=== PATIENT | female | born 1975 | race Caucasian/White ===

== ENCOUNTER → 2019-12-20 13:33 | Outpatient (CLI) | payer OTHER, SELFPAY ==
[2019-12-20 14:25] LABS: Add Manual Diff / Slide Review NO; Basophils Absolute Auto 100 /uL (0-100); Basophils Percent Auto 0.7 % (0-2); Eosinophils Absolute Auto 300 /uL (0-450); Eosinophils Percent Auto 2.3 % (2-4); Hematocrit 38.1 % (36-46); Lymphocytes Absolute Auto 2500 /uL (1100-4500); Lymphocytes Percent Auto 21.2 % (25-40); Mean Corpuscular HGB Conc 31.6 % (30-36); Mean Corpuscular Hemoglobin 23.6 PG (26-34); Mean Corpuscular Volume 74.7 fL (80-100); Monocytes Absolute Auto 500 /uL (0-900); Monocytes Percent Auto 4.6 % (3-14); Neutrophils Absolute Auto 8500 /uL (1500-7000); Neutrophils Percent Auto 71.2 % (50-75); Platelet Count 303 X10^3/uL (150-400); Red Cell Distribution Width 18.4 % (11.6-14.8)
[2019-12-20 14:37] LABS: Alanine Aminotransferase 81 IU/L (<35); Albumin 4.1 g/dL (3.5-5.0); Albumin Globulin Ratio 1.1 (1.0-2.8); Alkaline Phosphatase 128 U/L (38-126); Aspartate Aminotransferase 80 IU/L (14-36); BUN Creatinine Ratio 14.9 (6-22); Bilirubin Total 0.4 mg/dL (0.2-1.3); Blood Urea Nitrogen 7 mg/dL (7-17); Calcium 9.5 mg/dL (8.4-10.2); Carbon Dioxide 25 mmol/L (22-32); Chloride 102 mmol/L (98-107); Cholesterol 188 mg/dL (140-199); Estimated Glomerular Filt Rate > 60.0 mL/min (>60); Globulin 3.7 g/dL (1.7-4.1); Glucose 455 mg/dL (70-100); HDL Cholesterol 31 mg/dL (40-60); HEMOLYSIS < 15 (0-50); LDL Cholesterol Calculated 78 mg/dL (<100); Potassium 4.1 mmol/L (3.4-5.1); Sodium 137 mmol/L (137-145); Total Protein 7.8 g/dL (6.3-8.2); Triglycerides 394 mg/dL (35-150)
[2019-12-20 15:07] LABS: TSH w/ Reflex to FT4 1.54 uIU/mL (0.47-4.68)
== END ==
PROVIDERS: Family Provider Family Medicine; PCP Family Medicine; Referring Provider Family Medicine; Visit Provider Family Medicine
DX: Z00.00 Encounter for general adult medical examination without abnormal findings (principal); Z13.6 Encounter for screening for cardiovascular disorders; E78.5 Hyperlipidemia, unspecified; I10 Essential (primary) hypertension
CPT/HCPCS: 36415; 80053; 80061; 84443; 85025

== ENCOUNTER → 2020-02-04 17:03 | Outpatient (CLI) | payer OTHER, SELFPAY ==
--- NOTE | 2020-02-04 17:04 | DI.MG.S_ITS ---
BILATERAL DIGITAL SCREENING MAMMOGRAM 3D/2D WITH CAD: 02/04/2020 CLINICAL: Routine screening. Baseline exam. No prior exams were available for comparison. There are scattered fibroglandular elements in both breasts. Current study was also evaluated with a Computer Aided Detection (CAD) system. There is an oval low density focal asymmetry with an indistinct margin in the right breast at 12 o'clock anterior depth. No other significant masses, calcifications, or other findings are seen in either breast. IMPRESSION: INCOMPLETE: NEEDS ADDITIONAL IMAGING EVALUATION The oval low density focal asymmetry in the right breast is indeterminate. Mediolateral and spot compression views as well as additional views with possible ultrasound are recommended. This exam was interpreted at Station ID: [id number]. NOTE: For mammograms, a report in lay terms will be sent to the patient. Approximately 15% of breast malignancies will not be visualized mammographically. In the management of a palpable breast mass, a negative mammogram must not discourage biopsy of a clinically suspicious lesion. Electronically Signed By: Theo varela/vinicius:02/05/2020 08:59:53 letter sent: Additional Imaging Needed ACR BI-RADS Category 0: Incomplete 3340F
== END ==
PROVIDERS: Family Provider Family Medicine; PCP Family Medicine; Referring Provider Family Medicine; Visit Provider Family Medicine
DX: Z12.31 Encounter for screening mammogram for malignant neoplasm of breast (principal)
CPT/HCPCS: 77063; 77067

== ENCOUNTER → 2020-02-12 11:18 | Outpatient (CLI) | payer OTHER, SELFPAY ==
[2020-02-12 13:10] LABS: Hemoglobin A1C% w Est Avg Glu 10.6 % (4.0-6.0)
[2020-02-12 13:30] LABS: BUN Creatinine Ratio 19.4 (6-22); Blood Urea Nitrogen 12 mg/dL (7-17); Calcium 9.7 mg/dL (8.4-10.2); Carbon Dioxide 22 mmol/L (22-32); Chloride 105 mmol/L (98-107); Cholesterol 177 mg/dL (140-199); Estimated Glomerular Filt Rate > 60.0 mL/min (>60); Glucose 164 mg/dL (70-100); HDL Cholesterol 46 mg/dL (40-60); HEMOLYSIS < 15 (0-50); LDL Cholesterol Calculated 59 mg/dL (<100); Potassium 4.7 mmol/L (3.4-5.1); Sodium 139 mmol/L (137-145); Triglycerides 358 mg/dL (35-150)
[2020-02-12 14:27] LABS: Creatinine Urine Random 225.3 mg/dL
[2020-02-12 14:32] LABS: Microalbumi Creatinin Ratio Ur 31.5 ug/mg CR (<30); Microalbumin Urine Random 7.1 mg/dL (0-1.6)
== END ==
PROVIDERS: Family Provider Family Medicine; PCP Family Medicine; Referring Provider Family Medicine; Visit Provider Family Medicine
DX: E11.10 Type 2 diabetes mellitus with ketoacidosis without coma (principal); E66.9 Obesity, unspecified; E78.5 Hyperlipidemia, unspecified; I10 Essential (primary) hypertension
CPT/HCPCS: 36415; 80048; 80061; 82043; 82570; 83036

== ENCOUNTER → 2020-02-28 12:28 | Outpatient (CLI) | payer OTHER, SELFPAY ==
--- NOTE | 2020-02-28 12:51 | DI.MG.S_ITS ---
Patient Name: CHAU CONNER date: 1975 Sex: F Attending Physician: Christine Indications: Date: 02/28/2020 12:41 At the request of: BLANCA RIZVI Procedure: MM special view RT UNILATERAL RIGHT DIGITAL DIAGNOSTIC MAMMOGRAM 3D/2D WITH ADDITIONAL VIEWS: 02/28/2020 CLINICAL: Additional evaluation requested from prior study. Comparison is made to exam dated: 02/04/2020 [facility]. There are scattered fibroglandular elements in right breast. There is an oval low density focal asymmetry with an indistinct margin in the right breast at 12 o'clock anterior depth. No other significant masses or calcifications are seen in the breast. IMPRESSION: INCOMPLETE: NEEDS ADDITIONAL IMAGING EVALUATION The oval low density focal asymmetry in the right breast is indeterminate. An ultrasound is recommended. This exam was interpreted at Station ID: [id number]. NOTE: For mammograms, a report in lay terms will be sent to the patient. Approximately 15% of breast malignancies will not be visualized mammographically. In the management of a palpable breast mass, a negative mammogram must not discourage biopsy of a clinically suspicious lesion. Electronically Signed By: Theo Pedro M.D. ddp/penrad:02/28/2020 14:14:18 ACR BI-RADS Category 0: Incomplete 3340F Continued Report - Page 2 of 2 Patient Name: CHAU CONNER date: 1975 Sex: F Attending Physician: Christine Indications: Date: 02/28/2020 12:41 At the request of: BLANCA RIZVI Procedure: MM special view RT
--- NOTE | 2020-02-28 14:01 | DI.US.S_ITS ---
Patient Name: CHAU CONNER date: 1975 Sex: F Attending Physician: Christine Indications: Date: 02/28/2020 14:14 At the request of: BLANCA RIZVI Procedure: US breast RT limited LIMITED ULTRASOUND OF RIGHT BREAST: 02/28/2020 CLINICAL: Rt breast additional views - pt called back for u/s and views Patient returns today to evaluate a density in the right breast. Comparison is made to exams dated: 02/04/2020 mammogram and 02/28/2020 mammogram - [facility]. Real-time ultrasound of the right breast 12 o'clock region was performed on the area of interest. No discrete cystic or solid mass lesion identified in the area of mammographic abnormality. IMPRESSION: PROBABLY BENIGN There is no abnormality seen in the right breast to correspond with the mammography finding at 12 o'clock. A follow-up mammogram in 6 months is recommended to demonstrate stability. This exam was interpreted at Station ID: [id number]. Electronically Signed By: Theo varela/:02/28/2020 14:52:04 letter sent: Followup Recommended Ultrasound BI-RADS: 3 Probably benign
== END ==
PROVIDERS: Family Provider Family Medicine; PCP Family Medicine; Referring Provider Family Medicine; Visit Provider Family Medicine
DX: R92.8 Other abnormal and inconclusive findings on diagnostic imaging of breast (principal); N64.89 Other specified disorders of breast
CPT/HCPCS: 76642; 77065; G0279

== ENCOUNTER → 2020-09-03 11:49 | Outpatient (CLI) | payer BC, SELFPAY ==
[2020-09-03] MEDS: COVID-19 VACC, Ad26(JANSSEN)/PF 0.5 ML IM (12:18)
== END ==
PROVIDERS: Family Provider Family Medicine; PCP Family Medicine; Visit Provider Internal Medicine
DX: Z23 Encounter for immunization (principal)
CPT/HCPCS: 0031A; 91303

== ENCOUNTER → 2020-09-28 11:05 | Outpatient (CLI) | payer BC, SELFPAY ==
[2020-09-28 11:53] LABS: Add Manual Diff / Slide Review NO; Basophils Absolute Auto 100 /uL (0-100); Basophils Percent Auto 0.7 % (0-2); Eosinophils Absolute Auto 300 /uL (0-450); Eosinophils Percent Auto 2.4 % (2-4); Hematocrit 39.6 % (36-46); Hemoglobin 12.5 g/dL (12.0-16.0); Lymphocytes Absolute Auto 2700 /uL (1100-4500); Lymphocytes Percent Auto 23.8 % (25-40); Mean Corpuscular HGB Conc 31.6 % (30-36); Mean Corpuscular Hemoglobin 24.9 PG (26-34); Mean Corpuscular Volume 78.8 fL (80-100); Monocytes Absolute Auto 600 /uL (0-900); Monocytes Percent Auto 4.9 % (3-14); Neutrophils Absolute Auto 7800 /uL (1500-7000); Neutrophils Percent Auto 68.2 % (50-75); Platelet Count 256 X10^3/uL (150-400); Red Blood Cell Count 5.02 X10^6/uL (4.0-5.2); Red Cell Distribution Width 16.7 % (11.6-14.8); White Blood Cell Count 11.4 X10^3/uL (4.5-11.0)
[2020-09-28 12:06] LABS: Alanine Aminotransferase 84 IU/L (<35); Albumin Globulin Ratio 1.1 (1.0-2.8); Alkaline Phosphatase 121 U/L (38-126); Aspartate Aminotransferase 56 IU/L (14-36); BUN Creatinine Ratio 15.7 (6-22); Bilirubin Total 0.2 mg/dL (0.2-1.3); Bilirubin Unconjugated 0.2 mg/dL (0.0-1.1); Blood Urea Nitrogen 8 mg/dL (7-17); Estimated Glomerular Filt Rate > 60.0 mL/min (>60); Globulin 3.7 g/dL (1.7-4.1); HEMOLYSIS < 15 (0-50); Total Protein 7.7 g/dL (6.3-8.2)
== END ==
PROVIDERS: Family Provider Family Medicine; PCP Family Medicine; Referring Provider Podiatrist; Visit Provider Podiatrist
DX: B35.1 Tinea unguium (principal); B35.3 Tinea pedis
CPT/HCPCS: 36415; 80076; 82565; 84520; 85025

== ENCOUNTER → 2020-10-26 09:23 | Outpatient (CLI) | payer BC, SELFPAY ==
[2020-10-26 11:25] LABS: Hemoglobin A1C% w Est Avg Glu 11.2 % (4.0-6.0)
[2020-10-26 11:32] LABS: Creatinine Urine Random 164.3 mg/dL
[2020-10-26 11:37] LABS: Microalbumi Creatinin Ratio Ur 18.8 ug/mg CR (<30); Microalbumin Urine Random 3.1 mg/dL (0-1.6)
== END ==
PROVIDERS: Family Provider Family Medicine; PCP Family Medicine; Referring Provider Family Medicine; Visit Provider Family Medicine
DX: E11.10 Type 2 diabetes mellitus with ketoacidosis without coma (principal)
CPT/HCPCS: 36415; 82043; 82570; 83036

== ENCOUNTER → 2021-01-29 11:09 | Outpatient (CLI) | payer BC, SELFPAY ==
[2021-01-29 13:03] LABS: Add Manual Diff / Slide Review NO; Basophils Absolute Auto 100 /uL (0-100); Basophils Percent Auto 0.8 % (0-2); Eosinophils Absolute Auto 300 /uL (0-450); Eosinophils Percent Auto 2.2 % (2-4); Hematocrit 38.5 % (36-46); Hemoglobin 12.3 g/dL (12.0-16.0); Lymphocytes Absolute Auto 2900 /uL (1100-4500); Lymphocytes Percent Auto 22.7 % (25-40); Mean Corpuscular HGB Conc 31.9 % (30-36); Mean Corpuscular Hemoglobin 25.2 PG (26-34); Mean Corpuscular Volume 79.1 fL (80-100); Monocytes Absolute Auto 500 /uL (0-900); Monocytes Percent Auto 4.3 % (3-14); Neutrophils Absolute Auto 8900 /uL (1500-7000); Platelet Count 286 X10^3/uL (150-400); Red Blood Cell Count 4.87 X10^6/uL (4.0-5.2); Red Cell Distribution Width 16.9 % (11.6-14.8); White Blood Cell Count 12.7 X10^3/uL (4.5-11.0)
[2021-01-29 13:31] LABS: Alanine Aminotransferase 65 IU/L (<35); Albumin 3.9 g/dL (3.5-5.0); Alkaline Phosphatase 79 U/L (38-126); Aspartate Aminotransferase 50 IU/L (14-36); BUN Creatinine Ratio 18.9 (6-22); Bilirubin Total 0.3 mg/dL (0.2-1.3); Bilirubin Unconjugated 0.2 mg/dL (0.0-1.1); Blood Urea Nitrogen 10 mg/dL (7-17); Estimated Glomerular Filt Rate > 60.0 mL/min (>60); Globulin 3.9 g/dL (1.7-4.1); HEMOLYSIS < 15 (0-50); Total Protein 7.8 g/dL (6.3-8.2)
== END ==
PROVIDERS: Family Provider Family Medicine; PCP Family Medicine; Referring Provider Podiatrist; Visit Provider Podiatrist
DX: B35.1 Tinea unguium (principal); B35.3 Tinea pedis
CPT/HCPCS: 36415; 80076; 82565; 84520; 85025

== ENCOUNTER → 2021-05-22 10:29 | Outpatient (CLI) | payer BC, SELFPAY ==
[2021-05-22 11:51] LABS: Add Manual Diff / Slide Review NO; Basophils Absolute Auto 0 /uL (0-100); Basophils Percent Auto 0.6 % (0-2); Eosinophils Absolute Auto 300 /uL (0-450); Eosinophils Percent Auto 3.9 % (2-4); Hematocrit 33.1 % (36-46); Hemoglobin 10.5 g/dL (12.0-16.0); Lymphocytes Absolute Auto 2300 /uL (1100-4500); Lymphocytes Percent Auto 29.7 % (25-40); Mean Corpuscular HGB Conc 31.8 % (30-36); Mean Corpuscular Hemoglobin 24.5 PG (26-34); Mean Corpuscular Volume 77.1 fL (80-100); Monocytes Absolute Auto 400 /uL (0-900); Monocytes Percent Auto 5.7 % (3-14); Neutrophils Absolute Auto 4700 /uL (1500-7000); Neutrophils Percent Auto 60.1 % (50-75); Platelet Count 244 X10^3/uL (150-400); Red Blood Cell Count 4.29 X10^6/uL (4.0-5.2); Red Cell Distribution Width 16.9 % (11.6-14.8); White Blood Cell Count 7.8 X10^3/uL (4.5-11.0)
[2021-05-22 12:11] LABS: Alanine Aminotransferase 35 IU/L (<35); Albumin 3.7 g/dL (3.5-5.0); Albumin Globulin Ratio 1.2 (1.0-2.8); Alkaline Phosphatase 75 U/L (38-126); Aspartate Aminotransferase 44 IU/L (14-36); BUN Creatinine Ratio 15.9 (6-22); Bilirubin Total 0.5 mg/dL (0.2-1.3); Blood Urea Nitrogen 10 mg/dL (7-17); Calcium 9.3 mg/dL (8.4-10.2); Carbon Dioxide 29 mmol/L (22-32); Chloride 106 mmol/L (98-107); Cholesterol 146 mg/dL (140-199); Estimated Glomerular Filt Rate > 60.0 mL/min (>60); Globulin 3.2 g/dL (1.7-4.1); Glucose 93 mg/dL (70-100); HDL Cholesterol 28 mg/dL (40-60); HEMOLYSIS < 15 (0-50); LDL Cholesterol Calculated 88 mg/dL (<100); Potassium 3.9 mmol/L (3.4-5.1); Sodium 142 mmol/L (137-145); Total Protein 6.9 g/dL (6.3-8.2); Triglycerides 148 mg/dL (35-150)
[2021-05-22 12:13] LABS: Hemoglobin A1C% w Est Avg Glu 5.5 % (4.0-6.0)
[2021-05-22 12:56] LABS: Microalbumi Creatinin Ratio Ur 31.3 ug/mg CR (<30); Microalbumin Urine Random 8.1 mg/dL (0-1.6)
== END ==
PROVIDERS: Family Provider Family Medicine; PCP Family Medicine; Referring Provider Physician Assistant; Visit Provider Physician Assistant
DX: E11.10 Type 2 diabetes mellitus with ketoacidosis without coma (principal); E78.5 Hyperlipidemia, unspecified; I10 Essential (primary) hypertension
CPT/HCPCS: 36415; 80053; 80061; 82043; 82570; 83036; 85025

== ENCOUNTER → 2021-05-24 10:21 | Outpatient (CLI) | payer BC, SELFPAY ==
[2021-05-24 13:08] LABS: HEMOLYSIS < 15 (0-50); Iron 28 ug/dL (37-170)
[2021-05-24 13:19] LABS: Percent Iron Saturation 10 % (15-50); Total Iron Binding Capacity 270 ug/dL (265-497); Transferrin 197 mg/dL (206-381)
[2021-05-24 13:45] LABS: Ferritin 17 ng/mL (6-137)
[2021-05-24 13:59] LABS: Vitamin B12 610 pg/mL (239-931)
[2021-05-24 14:17] LABS: Folate 5.7 ng/mL (2.76-20.0)
== END ==
PROVIDERS: Family Provider Family Medicine; PCP Family Medicine; Referring Provider Family Medicine; Visit Provider Family Medicine
DX: D64.9 Anemia, unspecified (principal)
CPT/HCPCS: 36415; 82607; 82728; 82746; 83540; 83550

== ENCOUNTER → 2021-08-20 09:12 | Outpatient (CLI) | payer BC, SELFPAY ==
[2021-08-20 10:35] LABS: Hemoglobin A1C% w Est Avg Glu 5.4 % (4.0-6.0)
[2021-08-20 11:29] LABS: Vitamin D 25 Hydroxy (D3) 22.8 ng/mL (30.0-100.0)
[2021-08-20 11:39] LABS: Ferritin 10 ng/mL (6-137)
[2021-08-20 11:44] LABS: TSH w/ Reflex to FT4 0.93 uIU/mL (0.47-4.68)
[2021-08-20 12:10] LABS: Folate 5.1 ng/mL (2.76-20.0); Vitamin B12 674 pg/mL (239-931)
== END ==
PROVIDERS: Physician Assistant; Family Provider Family Medicine; PCP Family Medicine; Referring Provider Family Medicine; Visit Provider Family Medicine
DX: D64.9 Anemia, unspecified (principal); Z98.84 Bariatric surgery status; E11.10 Type 2 diabetes mellitus with ketoacidosis without coma; E55.9 Vitamin D deficiency, unspecified
CPT/HCPCS: 36415; 82306; 82607; 82728; 82746; 83036; 84443

== ENCOUNTER → 2021-09-22 14:28 | Outpatient (CLI) | payer BC, SELFPAY ==
[2021-09-22 15:30] LABS: Add Manual Diff / Slide Review NO; Basophils Absolute Auto 100 /uL (0-100); Basophils Percent Auto 0.6 % (0-2); Eosinophils Absolute Auto 200 /uL (0-450); Eosinophils Percent Auto 2.1 % (2-4); Hematocrit 32.8 % (36-46); Hemoglobin 10.8 g/dL (12.0-16.0); Lymphocytes Absolute Auto 2400 /uL (1100-4500); Lymphocytes Percent Auto 26.8 % (25-40); Mean Corpuscular HGB Conc 32.8 % (30-36); Mean Corpuscular Hemoglobin 25.5 PG (26-34); Mean Corpuscular Volume 77.8 fL (80-100); Monocytes Absolute Auto 600 /uL (0-900); Monocytes Percent Auto 6.5 % (3-14); Neutrophils Absolute Auto 5700 /uL (1500-7000); Platelet Count 252 X10^3/uL (150-400); Red Blood Cell Count 4.22 X10^6/uL (4.0-5.2); Red Cell Distribution Width 16.6 % (11.6-14.8)
[2021-09-22 16:25] LABS: Ferritin 9 ng/mL (6-137)
[2021-09-22 16:56] LABS: Folate 5.9 ng/mL (2.76-20.0)
== END ==
PROVIDERS: Family Provider Family Medicine; PCP Family Medicine; Referring Provider Physician Assistant; Visit Provider Physician Assistant
DX: D64.9 Anemia, unspecified (principal); Z98.84 Bariatric surgery status
CPT/HCPCS: 36415; 82728; 82746; 85025

== ENCOUNTER → 2021-10-12 07:51 | Outpatient (CLI) | payer BC, SELFPAY ==
--- NOTE | 2021-10-12 07:53 | DI.MRI.S_ITS ---
PROCEDURE: MR KNEE RT WO CON INDICATIONS: Suspect ligament or meniscal tear TECHNIQUE: Noncontrast sagittal PD fast spin echo and T2 fast spin echo with fat saturation, sagittal 3-D FLASH with fat saturation; coronal T1 spin echo and PD fast spin echo with fat saturation, and axial PD fast spin echo with fat saturation through the knee. COMPARISON: None. FINDINGS: Image quality: Excellent. Menisci: The lateral meniscus is intact. Surfacing signal in the posterior horn, medial meniscus, concerning for tear. The medial meniscus is extruded by approximately 3 mm. Cruciate ligaments: The anterior and posterior cruciate ligaments appear intact. Medial structures: The medial collateral ligament appears intact. Mild periligamentous edema. Visualized portions of the pes anserinus tendons appear normal. No abnormal bursal fluid. Lateral structures: The lateral collateral ligament, long and short heads of the biceps femoris tendon appear intact. The popliteus tendon appears normal. Iliotibial band appears normal. Anterior structures: The quadriceps and patellar tendons appear intact. Patellar alignment is normal. No edema in the infrapatellar fat pad. Bones and cartilage: No bone marrow contusions or fractures. Tricompartment osteophytosis. Signal heterogeneity and thinning/deficiency of the tricompartment hyaline cartilage, most prominent in the medial compartment. Fraying of the lateral trochlear hyaline cartilage. Joint space: Small to moderate knee joint fluid. Trace fluid in the popliteal fossa. IMPRESSION: 1. Evidence of medial meniscal tear with extrusion as detailed above. 2. Grade 1/2 MCL injury. 3. 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 4. Small to moderate joint effusion. Dictated by: Shaheen Rodney M.D. on 10/12/2021 at 11:24 Approved by: Shaheen Rodney M.D. on 10/12/2021 at 11:33
== END ==
PROVIDERS: PCP Family Medicine; Referring Provider Physician Assistant; Visit Provider Physician Assistant
DX: S83.241A Other tear of medial meniscus, current injury, right knee, initial encounter (principal); S83.411A Sprain of medial collateral ligament of right knee, initial encounter; M17.11 Unilateral primary osteoarthritis, right knee; M25.461 Effusion, right knee
CPT/HCPCS: 73721

== ENCOUNTER → 2021-11-15 08:20 | Outpatient (CLI) | payer BC, SELFPAY ==
[2021-11-15 11:13] LABS: HEMOLYSIS < 15 (0-50); Iron 48 ug/dL (37-170)
[2021-11-15 11:25] LABS: Percent Iron Saturation 16 % (15-50); Total Iron Binding Capacity 303 ug/dL (265-497); Transferrin 216 mg/dL (206-381)
[2021-11-15 11:58] LABS: Vitamin B12 416 pg/mL (239-931)
== END ==
PROVIDERS: Physician Assistant; PCP Family Medicine; Referring Provider Family Medicine; Visit Provider Family Medicine
DX: D64.9 Anemia, unspecified (principal); Z98.84 Bariatric surgery status; D50.9 Iron deficiency anemia, unspecified
CPT/HCPCS: 36415; 82607; 83540; 83550

== ENCOUNTER → 2022-11-28 09:32 | Outpatient (CLI) | payer BC, SELFPAY ==
--- NOTE | 2022-11-28 09:34 | DI.RAD.S_ITS ---
PROCEDURE: XR TOE RT MIN 2V INDICATIONS: Bruising and pain in Rt 4th toe, diabetic TECHNIQUE: 3 views of the right 4th toe(s) acquired. COMPARISON: None. FINDINGS: Bones: No fractures or dislocations. No suspicious bony lesions. Periarticular osteophyte formation at the 1st metatarsophalangeal joint. Soft tissues: No suspicious soft tissue densities. IMPRESSION: No acute fracture. No osseous lesion. If symptoms and/or clinical suspicion for pathology persist, further assessment with repeat, or advanced imaging (e.g., CT, MRI, or bone scan) may be helpful for further assessment. Dictated by: Savita Brownlee M.D. on 11/28/2022 at 13:35 Approved by: Savita Brownlee M.D. on 11/28/2022 at 13:35
--- NOTE | 2022-11-28 09:34 | DI.RAD.S_ITS ---
PROCEDURE: XR FOOT RT MIN 3V INDICATIONS: Bruising and pain in Rt 4th toe, diabetic TECHNIQUE: 3 views of the foot were acquired. COMPARISON: [facility], , FOOT 3V RIGHT, 01/13/2015, 14:51. FINDINGS: Bones: No fractures or dislocations. No suspicious bony lesions. Periarticular osteophyte formation at the 1st metatarsophalangeal joint as well as the tibiotalar and talonavicular joints.. Soft tissues: No tibiotalar joint effusion. Achilles tendon appears normal. IMPRESSION: 1. Osteoarthritis. 2. No acute fracture. No osseous lesion. If symptoms and/or clinical suspicion for pathology persist, further assessment with repeat, or advanced imaging (e.g., CT, MRI, or bone scan) may be helpful for further assessment. Dictated by: Savita Brownlee M.D. on 11/28/2022 at 13:36 Approved by: Savita Brownlee M.D. on 11/28/2022 at 13:36
== END ==
PROVIDERS: PCP Family Medicine; Referring Provider Physician Assistant; Visit Provider Physician Assistant
DX: M19.071 Primary osteoarthritis, right ankle and foot (principal); M79.674 Pain in right toe(s)
CPT/HCPCS: 73630; 73660

== ENCOUNTER → 2022-12-02 08:23 | Outpatient (CLI) | payer BC, SELFPAY ==
[2022-12-02 08:58] LABS: Add Manual Diff / Slide Review NO; Basophils Absolute Auto 100 /uL (0-100); Eosinophils Absolute Auto 200 /uL (0-450); Eosinophils Percent Auto 2.8 % (2-4); Hematocrit 30.2 % (36-46); Hemoglobin 9.7 g/dL (12.0-16.0); Lymphocytes Absolute Auto 2400 /uL (1100-4500); Lymphocytes Percent Auto 29.5 % (25-40); Mean Corpuscular Hemoglobin 22.9 PG (26-34); Mean Corpuscular Volume 71.4 fL (80-100); Monocytes Absolute Auto 600 /uL (0-900); Neutrophils Absolute Auto 4700 /uL (1500-7000); Neutrophils Percent Auto 58.7 % (50-75); Platelet Count 285 X10^3/uL (150-400); Red Blood Cell Count 4.22 X10^6/uL (4.0-5.2); Red Cell Distribution Width 17.3 % (11.6-14.8)
[2022-12-02 09:13] LABS: HEMOLYSIS < 15 (0-50); Iron 21 ug/dL (37-170)
[2022-12-02 09:15] LABS: Alanine Aminotransferase 27 IU/L (<35); Albumin 3.9 g/dL (3.5-5.0); Albumin Globulin Ratio 1.1 (1.0-2.8); Alkaline Phosphatase 93 U/L (38-126); Aspartate Aminotransferase 26 IU/L (14-36); BUN Creatinine Ratio 16.4 (6-22); Bilirubin Total 0.2 mg/dL (0.2-1.3); Blood Urea Nitrogen 11 mg/dL (7-17); Carbon Dioxide 26 mmol/L (22-32); Chloride 105 mmol/L (98-107); Cholesterol 189 mg/dL (140-199); Estimated Glomerular Filt Rate > 60 mL/min (>60); Globulin 3.5 g/dL (1.7-4.1); Glucose 96 mg/dL (70-100); HDL Cholesterol 57 mg/dL (40-60); HEMOLYSIS < 15 (0-50); LDL Cholesterol Calculated 111 mg/dL (<100); Potassium 4.3 mmol/L (3.4-5.1); Sodium 139 mmol/L (137-145); Total Protein 7.4 g/dL (6.3-8.2); Triglycerides 106 mg/dL (35-150)
[2022-12-02 09:23] LABS: Percent Iron Saturation 5 % (15-50); Total Iron Binding Capacity 420 ug/dL (265-497); Transferrin 320 mg/dL (206-381)
[2022-12-02 09:43] LABS: TSH w/ Reflex to FT4 1.24 uIU/mL (0.47-4.68)
[2022-12-02 09:48] LABS: Ferritin 5 ng/mL (6-137)
[2022-12-02 11:46] LABS: Vitamin D 25 Hydroxy (D3) 15.2 ng/mL (30.0-100.0)
[2022-12-03 03:36] LABS: x Labcorp Estim. Avg Glu (eAG) 120 mg/dL (.); x Labcorp Hemoglobin A1c 5.8 % (4.8-5.6)
[2022-12-05 14:59] LABS: Vitamin B12 545 pg/mL (239-931)
== END ==
PROVIDERS: PCP Family Medicine; Referring Provider Physician Assistant; Visit Provider Physician Assistant
DX: D64.9 Anemia, unspecified (principal); E11.65 Type 2 diabetes mellitus with hyperglycemia; E55.9 Vitamin D deficiency, unspecified; E78.5 Hyperlipidemia, unspecified; I10 Essential (primary) hypertension; N92.1 Excessive and frequent menstruation with irregular cycle; R53.83 Other fatigue; Z98.84 Bariatric surgery status
CPT/HCPCS: 36415; 80053; 80061; 82043; 82306; 82570; 82607; 82728; 83036; 83540; 83550; 84443; 85025

== ENCOUNTER → 2023-03-24 08:24 | Outpatient (CLI) | payer BC, SELFPAY ==
[2023-03-24 08:55] LABS: Hematocrit 23.6 % (36-46); Hemoglobin 7.1 g/dL (12.0-16.0)
[2023-03-24 09:21] LABS: Total Iron Binding Capacity 416 ug/dL (265-497); Transferrin 308 mg/dL (206-381)
[2023-03-24 09:29] LABS: HEMOLYSIS < 15 (0-50); Iron 23 ug/dL (37-170); Percent Iron Saturation 6 % (15-50)
[2023-03-24 09:45] LABS: Ferritin 4 ng/mL (6-137)
== END ==
PROVIDERS: PCP Family Medicine; Referring Provider Physician Assistant; Visit Provider Physician Assistant
DX: D50.9 Iron deficiency anemia, unspecified (principal); Z98.84 Bariatric surgery status
CPT/HCPCS: 36415; 82728; 83540; 83550; 85014; 85018

== ENCOUNTER 2023-04-30 02:47 | Emergency (ER) | payer BC, SELFPAY ==
[2023-04-30] VITALS (13 sets, daily range): BP systolic 136–179; BP diastolic 65–88; PULSE 63–83; RESP 16–28; TEMP 36.1; O2SAT 95–100; BMI 45.0
--- NOTE | 2023-04-30 02:50 | DI.RAD.S_ITS ---
PROCEDURE: XR CHEST 1V INDICATIONS: SOB TECHNIQUE: One view of the chest was acquired. COMPARISON: None. FINDINGS: Surgical changes and devices: None. Lungs and pleura: Lungs are clear. No pleural effusions or pneumothorax. Mediastinum: The heart is mildly enlarged. No central venous congestion. Normal aortic contour. Bones and chest wall: No suspicious bony lesions. Overlying soft tissues appear unremarkable. IMPRESSION: 1. Mild cardiomegaly. 2. Final interpretation is concordant with preliminary report. Dictated by: Charla Jin M.D. on 04/30/2023 at 9:04 Approved by: Charla Jin M.D. on 04/30/2023 at 9:04
--- NOTE | 2023-04-30 02:57 | ED.GENADULT ---
HPI - General Adult General Chief complaint: Chest Pain Stated complaint: chest pain/migraine/sob Time Seen by Provider: 04/30/23 02:48 Source: patient Mode of arrival: Ambulatory Limitations: no limitations History of Present Illness HPI narrative: 48-year-old female is here for evaluation of chest pain a bad headache shortness of breath. Fairly sudden onset of the symptoms earlier this morning. Describes the chest pain in the center of her chest. No fevers. Has not had a cough or sore throat. Has a history of high blood pressure. Has also had a history of diabetes. Does not specifically having history of headaches. Has not tried anything for the symptoms prior to arrival. Related Data Previous Rx's Medication Instructions Recorded Seamus Melts 2 ea PO BID #100 ea 09/23/21 Bariatric Pals MVI 2 ea PO DAILY #100 ea 09/23/21 lamotrigine 25 mg tablet See Rx Instructions .Route 02/23/22 .COMPLEX #30 tabs epinephrine 0.3 mg/0.3 mL 0.3 mg (0.3 mL) IM ONCE #2 ea 12/01/22 injection, auto-injector ibuprofen 800 mg tablet See Rx Instructions .Route 12/06/22 .COMPLEX #30 tabs ferrous fumarate 66 mg iron-vit C 1 cap PO BID #100 caps 12/29/22 250 mg-vit B12 10 mcg capsule losartan 100 mg tablet 100 mg PO DAILY #30 tabs 12/29/22 gabapentin 300 mg capsule 900 mg (3 x 300 mg) PO DAILY #90 12/30/22 caps amlodipine 5 mg tablet 5 mg PO DAILY #90 tabs 01/26/23 topiramate 25 mg tablet 25 mg PO DAILY #30 tabs 01/26/23 Allergies Allergy/AdvReac Type Severity Reaction Status Date / Time bupropion [From WELLBUTRIN] Allergy Severe FACIAL Verified 01/26/23 13:59 SWELLING morphine Allergy Severe ANGIOEDEMA Verified 01/26/23 13:59 shellfish derived Allergy Severe ANGIOEDEMA Verified 01/26/23 13:59 Penicillins Allergy Mild CHILDHOOD, Verified 01/26/23 13:59 HIVES? lisinopril AdvReac Mild Cough Verified 01/26/23 13:59 Review of Systems Constitutional Constitutional: Reports system reviewed and no additional complaints, except as documented Cardiovascular Cardiovascular: Reports system reviewed and no additional complaints, except as documented Respiratory Respiratory: Reports system reviewed and no additional complaints, except as documented Gastrointestinal Gastrointestinal: Reports system reviewed and no additional complaints, except as documented Integumentary/Breasts Skin/Breast: Reports system reviewed and no additional complaints, except as documented Neurologic Neurologic: Reports system reviewed and no additional complaints, except as documented Allergic/Immunologic Allergic/Immunologic: Reports system reviewed and no additional complaints, except as documented Patient History Medical History Type 2 diabetes mellitus with hyperglycemia Rosacea (~1995) Foot pain (~2015) Painful menstrual periods (~2020) Irregular menstrual cycle (~2020) Menorrhagia with irregular cycle (~1987) Difficulty controlling anger Essential hypertension (~1994) Surgical History (Updated 12/01/22 @ 13:55 by Li Lee PA-C) Anesthesia History of tonsillectomy (~1989) Hx of laparoscopic gastric banding (~2008) History of section (~2013) History of section (~1993) Gastric bypass status for obesity (~2020) Family History Father Hypertension Hyperlipidemia Mother Diabetes mellitus Hypertension Brother Parkinson's disease Sister Hypertension Hyperlipidemia Sister Hypertension Sister Hypertension Hyperlipidemia Family/Other Meningitis spinal Social History marital status: Smoking Status: Never smoker alcohol intake: never substance use type: does not use Smoking Status: Never smoker Exam Initial Vital Signs Initial Vital Signs: Vital Signs Pulse Rate 80 04/30/23 02:54 Respiratory Rate 28 H 04/30/23 02:54 Blood Pressure 179/88 H 04/30/23 02:54 Pulse Oximetry 100 04/30/23 02:54 Const General: cooperative, comfortable and No ill appearing HENMT Head: normal to inspection and normocephalic Resp Effort & Inspection: normal respiratory effort, no respiratory distress and tachypneic Auscultation: clear to auscultation bilaterally Cardio Rate: regular rate Rhythm: regular rhythm Skin General: no rashes or lesions noted Neuro General: patient alert, patient awake, patient oriented x3 and moves all extremities Extrem General: normal to inspection and capillary refill normal Course Orders Ordered: ED Orders 04/30/23 02:50 XR chest 1V Stat EKG-12 Lead Stat 04/30/23 02:55 Complete Blood Count AUTO DIFF Stat Comprehensive Metabolic Panel Stat D Dimer Stat Lipase Stat Magnesium Stat NT-proBNP (BNP-Adult 18+) Stat Troponin & CK Cardiac Panel Stat 04/30/23 03:00 Covid-19 + FLU A/B + RSV - PCR Stat 04/30/23 04:26 CT angio chest PE protocol Stat Discontinued Medications Sodium Chloride (Normal Saline 0.9%) 1,000 mls @ 1,000 mls/hr IV BOLUS ONE Stop: 04/30/23 04:23 Last Infusion: 04/30/23 04:39 Dose: Infused Documented By: Admin: 04/30/23 03:41 Dose: 1,000 mls/hr Documented By: JACOB Ketorolac Tromethamine (Ketorolac 30 Mg/Ml Vial) 30 mg IV NOW ONE Stop: 04/30/23 03:25 Last Admin: 04/30/23 03:40 Dose: 30 mg Documented By: JACOB Vital Signs Vital signs: Vital Signs - 8 hr 04/30/23 02:54 04/30/23 02:54 04/30/23 02:55 Temperature 97 F L Pulse Rate 80 83 Respiratory Rate 28 H 28 H Blood Pressure 179/88 H 179/88 H Pulse Oximetry 100 100 Oxygen Delivery Method Room Air 04/30/23 02:57 04/30/23 02:57 04/30/23 02:59 Temperature Pulse Rate 74 75 Respiratory Rate 27 H 27 H Blood Pressure 169/77 H Pulse Oximetry 100 100 Oxygen Delivery Method Room Air 04/30/23 03:00 04/30/23 03:00 04/30/23 03:30 Temperature Pulse Rate 71 64 Respiratory Rate 27 H 20 Blood Pressure 163/69 H Pulse Oximetry 100 97 Oxygen Delivery Method 04/30/23 03:31 04/30/23 03:31 04/30/23 04:00 Temperature Pulse Rate 65 63 Respiratory Rate 21 19 Blood Pressure 136/65 Pulse Oximetry 97 95 Oxygen Delivery Method 04/30/23 04:01 04/30/23 04:01 Temperature Pulse Rate 63 Respiratory Rate 17 Blood Pressure 142/65 H Pulse Oximetry 96 Oxygen Delivery Method Room Air Medical Decision Making Lab Data Lab results reviewed: Yes I reviewed the patient's lab results. 04/30/23 02:55 04/30/23 02:55 Labs: Lab Results 04/30/23 04/30/23 Range/Units 02:55 03:00 WBC 10.1 (4.5-11.0) X10^3/uL RBC 4.20 (4.0-5.2) X10^6/uL Hgb 7.8 L (12.0-16.0) g/dL Hct 25.8 L (36-46) % MCV 61.5 L (80-100) fL MCH 18.6 L (26-34) PG MCHC 30.3 (30-36) % RDW 20.1 H (11.6-14.8) % Plt Count 310 (150-400) X10^3/uL Neut % (Auto) 64.0 (50-75) % Lymph % (Auto) 23.3 L (25-40) % [place] % (Auto) 7.3 (3-14) % Eos % (Auto) 3.1 (2-4) % Baso % (Auto) 2.3 H (0-2) % Neut # (Auto) 6400 (7108-3289) /uL Lymph # (Auto) 2300 (7159-4304) /uL [place] # (Auto) 700 (0-900) /uL Eos # (Auto) 300 (0-450) /uL Baso # (Auto) 200 H (0-100) /uL RBC Morphology See below Hypochromasia 2+ H Anisocytosis 2+ H Microcytosis 2+ H D-Dimer < 215 (<500) ng/ml Sodium 139 (137-145) mmol/L Potassium 4.2 (3.4-5.1) mmol/L Chloride 106 (98-107) mmol/L Carbon Dioxide 24 (22-32) mmol/L BUN 13 (7-17) mg/dL Creatinine 0.72 (0.52-1.04) mg/dL Estimated GFR > 60 (>60) mL/min BUN/Creatinine Ratio 18.1 (6-22) Glucose 109 H (70-100) mg/dL Calcium 9.5 (8.4-10.2) mg/dL Magnesium 2.1 (1.6-2.3) mg/dL Total Bilirubin 0.3 (0.2-1.3) mg/dL AST 22 (14-36) IU/L ALT 20 (<35) IU/L Alkaline Phosphatase 76 (38-126) U/L Total Creatine Kinase 41 (30-135) U/L Troponin I < 0.012 (0.01-0.034) ng/mL NT-Pro-B Natriuret Pep 148 H (<125) pg/mL Total Protein 8.0 (6.3-8.2) g/dL Albumin 4.2 (3.5-5.0) g/dL Globulin 3.8 (1.7-4.1) g/dL Albumin/Globulin Ratio 1.1 (1.0-2.8) Lipase 70 (23-300) U/L SARS-CoV-2 (PCR) Negative (Negative) Influenza A (RT-PCR) Flu a negative (NEGATIVE) Influenza B (RT-PCR) Flu b negative (NEGATIVE) RSV (PCR) Negative (Negative) Imaging Data Chest x-ray: Radiologist's Impression: Borderline enlargement of the heart which maybe projectional or due to elevated hemidiaphragms. No acute process CT scan - chest: Radiologist's Impression: Suboptimal timing of the contrast bolus to evaluate for pulmonary embolism. No central pulmonary embolism or aortic dissection. No pulmonary nodule or infiltrate. ECG Data Attestation: I personally reviewed and interpreted this ECG as follows: Interpretation: Sinus rhythm Ventricular rate is 72 Normal axis Normal QRS Normal QTC No ST T wave changes MDM Narrative Medical decision making narrative: EKG is unremarkable. Chest x-ray is unremarkable. Labs unremarkable. Not tachycardic. Not hypoxic but is significantly tachypneic. Lungs are clear. She states she feels like she just can not take a deep breath. I have low suspicion for ACS. Clinically not in heart failure. Patient does not have flu or COVID. No signs of pneumonia on the chest x-ray. Do not have a definitive explanation for her dyspnea and tachypnea. Despite having a negative D-dimer I felt that a CT scan was warranted to evaluate for pulmonary embolism. Subsequent CT scan negative. I had a discussion with the patient regarding the lack of a definitive diagnosis. No indication for antibiotics. No indication for admission to the hospital. Does not require oxygen. Patient expressed understanding of this. Will have her contact her primary doctor for follow-up specifically if her symptoms do not improve. She is no abdominal pain. No lower extremity swelling. Patient expressed understanding and agreement with plan. Discharge Plan Departure Patient Disposition: Home Clinical Impression: Shortness of breath, Headache Instructions: DI for Headache Activity Restrictions/Additional Instructions: Recommend that you continue to take all of your medications as directed. Contact your primary doctor for a follow-up. Return to the emergency department for new or worsening symptoms. Prescriptions: No Action epinephrine 0.3 mg/0.3 mL auto-injector 0.3 mg IM ONCE Qty: 2 1RF Rx Instructions: inject as directed to prevent anaphylaxis. MR in 15 min. Seek medical attention immediately. amlodipine 5 mg tablet 5 mg PO DAILY Qty: 90 3RF topiramate 25 mg tablet 25 mg PO DAILY Qty: 30 0RF ferrous fumarate-vit C-vit B12 66 mg iron- 250 mg-10 mcg capsule 1 cap PO BID Qty: 100 3RF losartan 100 mg tablet 100 mg PO DAILY Qty: 30 1RF Seamus Melts 2 ea PO BID Qty: 100 0RF Rx Instructions: Iron 54mg Vitamin C 90mg Taking 2 twice a day Bariatric Pals MVI 2 ea PO DAILY Qty: 100 0RF Rx Instructions: Take 2 tabs once daily (has 45mg of iron per pill) lamotrigine 25 mg tablet See Rx Instructions .ROUTE .COMPLEX Qty: 30 5RF Dose Instruction: TAKE 1 TABLET BY MOUTH EVERY DAY Rx Instructions: TAKE 1 TABLET BY MOUTH EVERY DAY ibuprofen 800 mg tablet See Rx Instructions .ROUTE .COMPLEX Qty: 30 2RF Dose Instruction: TAKE 1 TABLET BY MOUTH THREE TIMES DAILY WITH FOOD FOR 10 DAYS Rx Instructions: TAKE 1 TABLET BY MOUTH THREE TIMES DAILY WITH FOOD FOR 10 DAYS gabapentin 300 mg capsule 900 mg PO DAILY Qty: 90 1RF Referrals: Tim King MD [Primary Care Provider] - Stand Alone Forms: Patient Portal/API
[2023-04-30 03:04] LABS: Basophils Absolute Auto 200 /uL (0-100); Basophils Percent Auto 2.3 % (0-2); Eosinophils Absolute Auto 300 /uL (0-450); Eosinophils Percent Auto 3.1 % (2-4); Hematocrit 25.8 % (36-46); Hemoglobin 7.8 g/dL (12.0-16.0); Lymphocytes Absolute Auto 2300 /uL (1100-4500); Lymphocytes Percent Auto 23.3 % (25-40); Mean Corpuscular HGB Conc 30.3 % (30-36); Mean Corpuscular Hemoglobin 18.6 PG (26-34); Mean Corpuscular Volume 61.5 fL (80-100); Monocytes Absolute Auto 700 /uL (0-900); Monocytes Percent Auto 7.3 % (3-14); Neutrophils Absolute Auto 6400 /uL (1500-7000); Platelet Count 310 X10^3/uL (150-400); Red Cell Distribution Width 20.1 % (11.6-14.8); White Blood Cell Count 10.1 X10^3/uL (4.5-11.0)
[2023-04-30 03:08] LABS: Add Manual Diff / Slide Review SLIDE REVIEW
[2023-04-30 03:12] LABS: D Dimer < 215 ng/ml (<500)
[2023-04-30 03:17] LABS: Alanine Aminotransferase 20 IU/L (<35); Albumin 4.2 g/dL (3.5-5.0); Albumin Globulin Ratio 1.1 (1.0-2.8); Alkaline Phosphatase 76 U/L (38-126); Aspartate Aminotransferase 22 IU/L (14-36); BUN Creatinine Ratio 18.1 (6-22); Bilirubin Total 0.3 mg/dL (0.2-1.3); Blood Urea Nitrogen 13 mg/dL (7-17); Calcium 9.5 mg/dL (8.4-10.2); Carbon Dioxide 24 mmol/L (22-32); Chloride 106 mmol/L (98-107); Creatine Kinase 41 U/L (30-135); Estimated Glomerular Filt Rate > 60 mL/min (>60); Globulin 3.8 g/dL (1.7-4.1); Glucose 109 mg/dL (70-100); HEMOLYSIS < 15 (0-50); Lipase 70 U/L (23-300); Magnesium 2.1 mg/dL (1.6-2.3); Potassium 4.2 mmol/L (3.4-5.1); Sodium 139 mmol/L (137-145)
[2023-04-30 03:28] LABS: NT-proBNP (BNP-Adult 18+) 148 pg/mL (<125); Troponin I < 0.012 ng/mL (0.01-0.034)
[2023-04-30] MEDS: KETOROLAC 30 MG/ML VIAL IV (03:40)
[2023-04-30] MEDS: SODIUM CHLORIDE 0.9% 1,000 ML 1000 ML IV (03:41)
[2023-04-30 03:44] LABS: COVID-19 CEPHEID 4-PLEX PCR Negative (Negative); Influenza A - CEPHEID Flu A NEGATIVE (NEGATIVE); Influenza B - CEPHEID Flu B NEGATIVE (NEGATIVE); Respiratory Syncytial Virus Negative (Negative)
[2023-04-30 03:46] LABS: Anisocytosis 2+; Hypochromasia 2+; Microcytosis 2+
--- NOTE | 2023-04-30 04:26 | DI.CT.S_ITS ---
PROCEDURE: CT ANGIO CHEST PE PROTOCOL INDICATIONS: Chest pain, shortness of breath, tachycardia TECHNIQUE: After the administration of intravenous contrast, 2 mm thick sections acquired from the pulmonary apices to the posterior costophrenic angles. 3-dimensional maximum intensity projection (MIP) coronal and sagittal reformats were then acquired through the thorax. For radiation dose reduction, the following was used: automated exposure control, adjustment of mA and/or kV according to patient size. COMPARISON: None. FINDINGS: Image quality: Suboptimal. Pulmonary arteries: There is suboptimal bolus timing for good opacification of pulmonary arteries. There is no central or saddle pulmonary embolus. Lungs and pleura: Mild diffuse peripheral bronchial wall thickening. Central airways are patent. No dense consolidations, ground-glass opacities, or suspicious mass. Mild centrilobular emphysema. Mediastinum: Mild cardiomegaly. No pericardial effusion. Aortic caliber is normal. No mediastinal or hilar adenopathy. Normal esophagus. Bones and chest wall: No suspicious bony lesions. Ribs and thoracic spine appear intact throughout. Thyroid gland is partially imaged and imaged portion appears normal.. No axillary or supraclavicular adenopathy. Abdomen: Upper abdomen demonstrates a mixed fat and soft tissue mass arising from the lateral limb of the left adrenal gland measuring 4.8 cm. Surgical changes of gastric sleeve creation. Upper abdomen is otherwise unremarkable. IMPRESSION: 1. Suboptimal contrast timing to evaluate for pulmonary embolus. 2. Mild bronchial wall thickening may indicate early pulmonary edema or bronchitis. 3. Cardiomegaly. 4. 4.8 cm fatty left adrenal mass consistent with a myelolipoma. Given large size, surgical consult could be considered. 5. Final interpretation is concordant with preliminary report. Dictated by: Charla Jin M.D. on 04/30/2023 at 9:06 Approved by: Charla Jin M.D. on 04/30/2023 at 9:13
== END 2023-04-30 06:00 | disposition home or self-care (01) ==
PROVIDERS: Emergency Provider Emergency Medicine; PCP Family Medicine
DX: R06.02 Shortness of breath (principal); R51.9 Headache, unspecified; R07.9 Chest pain, unspecified; Z20.822 Contact with and (suspected) exposure to COVID-19
CPT/HCPCS: 0241U; 36415; 71045; 71275; 80053; 82550; 83690; 83735; 83880; 84484; 85025; 85379; 93005; 96361; 96374; 99284; J1885; Q9967

== ENCOUNTER → 2025-03-06 11:12 | Outpatient (CLI) | payer BC, SELFPAY ==
--- NOTE | 2025-03-06 11:14 | DI.RAD.S_ITS ---
PROCEDURE: XR FINGER LT MIN 2V INDICATIONS: thumb pain TECHNIQUE: AP hand, 2 views of the thumb acquired. COMPARISON: None. FINDINGS: Bones: No fractures or dislocations. No suspicious bony lesions. Moderate degenerative change of the 1st CMC Soft tissues: No suspicious soft tissue calcifications. IMPRESSION: Early osteoarthritis. Dictated by: Joe Bryant M.D. on 03/06/2025 at 14:52 Approved by: Joe Bryant M.D. on 03/06/2025 at 14:53
--- NOTE | 2025-03-06 11:14 | DI.RAD.S_ITS ---
PROCEDURE: XR FINGER RT MIN 2V INDICATIONS: thumb pain TECHNIQUE: AP hand, 2 views of the thumb COMPARISON: None. FINDINGS: Bones: No fractures or dislocations. No suspicious bony lesions. Mild degenerative changes at the basal joint and triscaphe joints. Soft tissues: No suspicious soft tissue calcifications. IMPRESSION: Early osteoarthritis. Dictated by: Joe Bryant M.D. on 03/06/2025 at 14:53 Approved by: Joe Bryant M.D. on 03/06/2025 at 14:54
[2025-03-06 12:04] LABS: Add Manual Diff / Slide Review NO; Hematocrit 25.4 % (36-46); Hemoglobin 7.4 g/dL (12.0-16.0); Lymphocytes Absolute Auto 2000 /uL (1100-4500); Mean Corpuscular HGB Conc 29.3 % (30-36); Mean Corpuscular Hemoglobin 17.6 PG (26-34); Mean Corpuscular Volume 60.2 fL (80-100); Platelet Count 338 X10^3/uL (150-400)
[2025-03-06 12:40] LABS: Anisocytosis 2+; Microcytosis 1+
[2025-03-06 12:41] LABS: Hypochromasia 1+
[2025-03-06 12:42] LABS: Ovalocytes 1+
[2025-03-06 13:08] LABS: HEMOLYSIS < 15 (0-50); Iron 32 ug/dL (37-170)
[2025-03-06 13:19] LABS: Percent Iron Saturation 8 % (15-50); Total Iron Binding Capacity 416 ug/dL (265-497); Transferrin 348 mg/dL (206-381)
[2025-03-06 13:44] LABS: Ferritin 4 ng/mL (11-264)
== END ==
PROVIDERS: PCP Family Medicine; Referring Provider Family Medicine; Visit Provider Family Medicine
DX: M19.042 Primary osteoarthritis, left hand (principal); M19.041 Primary osteoarthritis, right hand; M79.644 Pain in right finger(s); M79.645 Pain in left finger(s); M25.50 Pain in unspecified joint; D50.8 Other iron deficiency anemias; R89.9 Unspecified abnormal finding in specimens from other organs, systems and tissues
CPT/HCPCS: 36415; 73140; 82728; 83540; 83550; 85025; 85651; 86140